=== PATIENT | male | born 2000 | race Two or more races ===

== ENCOUNTER 2024-11-10 14:21 | Emergency (ER) | payer MEDICAID, SELFPAY ==
[2024-11-10 15:10] VITALS: BP 155/99; PULSE 61; RESP 20; TEMP 36.7; O2SAT 99
--- NOTE | 2024-11-10 16:42 | PD.EDURI ---
Upper Respiratory Inf. RME/HPI General Chief Complaint: Flu Like Symptoms Stated Complaint: CONGESTED, HEADACHE, MUCUS, CHILLS Time Seen by Provider: 11/10/24 16:06 Source: patient Arrival date/time: 11/10/24 14:21 Mode of arrival: ambulatory Limitations: no limitations RME / HPI RME / HPI Narrative: Patient complains of nasal congestion, complains of a cough he describes productive of phlegm. Patient also had a fever early on in the onset of his illness, patient tells me been sick x 3 days. MD Complaint: fever, cough and nasal congestion Onset (ago): day(s) (3 days) Duration: intermittent Severity: moderate Severity scale (1-10): 4 Exacerbating factors: nothing Description of mucous: clear Related Data Previous Rx's ?Medication ?Instructions ?Recorded Cyclobenzaprine * (FLEXERIL *) 10 mg PO Q8HR PRN spasm #20 tabs 06/27/15 Hydrocodone/Acetaminophen * (NORCO 1 tab PO Q4H PRN pain #20 tabs 06/27/15 5/325 *) ibuprofen 600 mg tablet 600 mg PO Q6HR PRN PAIN #60 tabs 06/27/15 Promethazine/Codeine SYRUP * 5 ml PO Q6HR PRN COUGH 5 days #0 mL 01/30/17 (PHENERGAN WITH CODEINE SYRUP *) benzonatate 200 mg capsule 200 mg PO BID PRN cough #20 caps 11/10/24 oseltamivir 75 mg capsule (Tamiflu) 75 mg PO BID 5 days #10 caps 11/10/24 promethazine-DM 6.25 mg-15 mg/5 mL 5 ml PO Q6H #118 mL 11/10/24 oral syrup promethazine-DM 6.25 mg-15 mg/5 mL 5 ml PO Q6H #118 mL 11/10/24 oral syrup Allergies Allergy/AdvReac Type Severity Reaction Status Date / Time No Known Allergies Allergy Verified 11/10/24 14:24 Review of Systems Constitutional Constitutional: Reports system reviewed and no additional complaints, except as documented Eyes Eyes: Reports system reviewed and no additional complaints, except as documented, Denies dry eyes, Denies exophthalmos and Reports floaters Cardiovascular Cardiovascular: Denies chest pain with activity and Denies claudication ED Exam General Limitations: Present no limitations General appearance: Present alert and in no apparent distress Head Head exam: Present atraumatic Eye Eye exam: Present normal appearance and EOMI ENT ENT exam: Present normal exam, normal oropharynx and mucous membranes moist Neck Neck exam: Present normal inspection, full ROM and trachea midline Chest Chest inspection: Present normal inspection and symmetric chest wall rise Respiratory Respiratory exam: Present normal lung sounds bilaterally Cardiovascular Cardiovascular exam: Present regular rate, normal rhythm and normal heart sounds Abdominal Exam Abdominal exam: Present soft and normal bowel sounds Rectal Exam Rectal exam: Present deferred Extremities Exam Extremities exam: Present normal inspection and full ROM Back Exam Back exam: Present normal inspection and full ROM Neurological Exam Neurological exam: Present alert and oriented X3 Psychiatric Psychiatric exam: Present normal affect and normal mood Skin Skin exam: Present warm, dry, intact and normal color Course Course Course Narrative: Patient will have a flu swab drawn. Quality Measures none Orders NA Reevaluation(s) Reevaluation #1: NA Additional Reevaluation(s): NA Vital Signs Vital signs: Vital Signs Temperature 98.0 F 11/10/24 15:10 Pulse Rate 61 11/10/24 15:10 Respiratory Rate 20 11/10/24 15:10 Blood Pressure 155/99 H 11/10/24 15:10 Pulse Oximetry (%) 99 11/10/24 15:10 Oxygen Delivery Method Room Air 11/10/24 15:10 Pulse ox room air is 99% Upper Respiratory Infection MDM Narrative MDM Narrative:: Patient requested Tamiflu even though he is been ill for 72 hours. He will be discharged in no apparent distress. I will send Phenergan DM to the pharmacy of his choice. Patient has to follow-up with primary care physician in 1 week, if worse then he is to return here. Patient data External records reviewed:: Other (specify) (NA) Clinical information provided by:: patient Social determinants that could affect healthcare access:: none (NA) Patient has the following chronic illnesses:: NA How is presenting disease/condition affected by chronic disease/condition?: no chronic disease Evaluation data The following diagnostics were reviewed and interpreted by me:: other (specify) (NA) Lab and/or radiology exams considered but not ordered:: NA Interpretation Summary: NA Medications / Prescriptions Medications or Prescriptions considered but not ordered:: NA Medication administrations:: NA Consultations Consultation(s) initiated? (list below): No Diagnosis Upper Respiratory Differential Diagnosis: other Most likely diagnosis given after review of the tests above:: Flu A Admission Indicated Admission indicated?: not indicated Explain why admission is indicated or not indicated:: NA Admission Request Was there a request for admission?: No Disposition Plan Disposition Plan: Discharge Discharge Attestation Discharge Attestation: The patient and all family members were given an opportunity to ask questions and understood the discharge instructions. Discharge instructions specifically effects, indications for sooner follow up or return to the emergency department, and the expected course of current diagnosis. Patient condition: Stable Discharge Plan Plan Patient Disposition: HOME (Self Care) Discharge Disposition comment: Discharge no apparent distress Patient condition on transfer: Stable Prescriptions/Referrals Prescriptions/Med Rec: New promethazine-DM 6.25-15 mg/5 mL syrup 5 ml PO Q6H Qty: 118 0RF oseltamivir [Tamiflu] 75 mg capsule 75 mg PO BID 5 Days Qty: 10 0RF promethazine-DM 6.25-15 mg/5 mL syrup 5 ml PO Q6H Qty: 118 0RF benzonatate 200 mg capsule 200 mg PO BID PRN (Reason: cough) Qty: 20 0RF No Action ibuprofen 600 MG tablet 600 mg PO Q6HR PRN (Reason: PAIN) Qty: 60 0RF Cyclobenzaprine * (FLEXERIL *) 10 MG tablet 10 mg PO Q8HR PRN (Reason: spasm) Qty: 20 0RF Hydrocodone/Acetaminophen * (NORCO 5/325 *) 1 TAB tablet 1 tab PO Q4H PRN (Reason: pain) Qty: 20 0RF Promethazine/Codeine SYRUP * (PHENERGAN WITH CODEINE SYRUP *) 120 ML syrup 5 ml PO Q6HR PRN (Reason: COUGH) 5 Days Qty: 0 0RF Referrals: North Patel MD [Primary Care Provider] - In 1 week Problem List Clinical Impression: Flu dt nvl A w oth resp Patient/Caregiver Discharge Instructions Discharge Activity: activity as tolerated Print Language: Maori Stand Alone Forms: Lauren Award Info., Work/School Release, Patient Portal Info Letter BRANDON/JENNIFER Supervising Physician BRANDON/JENNIFER Supervising Physician: USMAN
== END 2024-11-10 17:38 | disposition home or self-care (01) ==
PROVIDERS: Emergency Provider Emergency Medicine; PCP Family Medicine
DX: J10.1 Influenza due to other identified influenza virus with other respiratory manifestations (principal)
CPT/HCPCS: 99282